=== PATIENT | female | born 1995 | race African-American/Black ===

== ENCOUNTER 2019-03-06 12:06 | Emergency (ER) | payer MEDICAID ==
[~2019-03-06] VITALS: Ht 165.1 cm; Wt 61.0 kg
[2019-03-06 17:44] VITALS: BP 114/70
== END 2019-03-06 17:46 | disposition home or self-care (01) ==
LOC: ER 12:06
DX: K52.9 Noninfective gastroenteritis and colitis, unspecified (principal)
CPT/HCPCS: 99283